=== PATIENT | female | born 1940 | race Caucasian/White ===

== ENCOUNTER 2025-03-10 13:31 | Inpatient (IN) | payer OTHER ==
[2025-03-10 13:35] VITALS: BMI 24.5
[2025-03-10 14:40] LABS: ABSOLUTE IMMATURE GRANULOCYTES 0.03 x10^3/uL (0.0-0.031); BASOPHILS # 0.04 x10^3/uL (0.01-0.08); EOSINOPHIL % 0.4 % (0.7-5.8); EOSINOPHILS # 0.05 x10^3/uL (0.04-0.36); MCHC 32.8 g/dl (32.2-35.5); MEAN CELL VOLUME 92.2 fl (79.4-94.8); MEAN PLT VOLUME 11.9 fl (9.4-12.3); MONOCYTE # 1.16 x10^3/uL (0.24-0.86); MONOCYTE % 8.6 % (4.7-12.5); RDW 13.2 % (12.5-17.0)
[2025-03-10 15:12] LABS: GLUCOSE,RANDOM 286.0 mg/dL (74-106); TOT PROT 6.4 g/dl (6.4-8.2)
[2025-03-10 15:14] LABS: CO2 23.0 mmol/L (21-32)
[2025-03-10 15:15] LABS: ALK PHOS 63.0 U/L (40-150)
[2025-03-10] MEDS ORDERED: ACETAMINOPHEN INJECTION 100 ML ONE (15:17)
[2025-03-10 15:18] LABS: CREATININE 0.9 mg/dL (0.55-1.3); SGOT/AST 20.0 U/L (5-34); SGPT/ALT 15.0 U/L (0-55)
[2025-03-10] MEDS: ACETAMINOPHEN 1000 MG/100 ML BAG IVPB ONE (15:22)
[2025-03-10] MEDS: SODIUM CHLORIDE 0.9% 500 ML INFUS.BAG IV ONE (15:31)
[2025-03-10 17:11] LABS: URINE APPEARANCE CLOUDY; URINE COLOR YELLOW
[2025-03-10 17:12] LABS: URINE BILIRUBIN NEGATIVE (NEGATIVE); URINE GLUCOSE (UA) 3+ (NEGATIVE); URINE KETONE NEGATIVE (NEGATIVE); URINE NITRITE NEGATIVE (NEGATIVE); URINE PROTEIN NEGATIVE (NEGATIVE); URINE UROBILINOGEN 0.2 mg/dL (0.2-1.0)
[2025-03-10 17:13] LABS: URINE LEUK ESTERASE 3+ (NEGATIVE)
[2025-03-10] MEDS ORDERED: CEFTRIAXONE 1 GM/50 ML BAG ONE (17:54)
[2025-03-10] MEDS: CEFTRIAXONE 1 GM in DEXTROSE 5%-WATER - 50 ML IVPB SCH (17:58)
[2025-03-10] MEDS: ROSUVASTATIN CA 20 MG TABLET PO SCH (21:51)
[2025-03-10] MEDS: APIXABAN 2.5 MG TABLET PO SCH (21:51)
[2025-03-11] MEDS: CITALOPRAM HYDROBROMIDE 10 MG TABLET PO SCH (09:54)
[2025-03-11] MEDS: ACETAMINOPHEN 1000 MG/100 ML BAG IVPB PRN (18:54)
[2025-03-11] MEDS: INSULIN ASPART SLIDING SCALE (NOVOLOG) 1 VIAL SQ SCH (22:01)
[2025-03-11] MEDS: INSULIN GLARGINE (LANTUS) 100 UNITS/ML UNITS SQ SCH (22:02)
[2025-03-12 08:21] LABS: ABSOLUTE IMMATURE GRANULOCYTES 0.03 x10^3/uL (0.0-0.031); BASOPHILS # 0.04 x10^3/uL (0.01-0.08); EOSINOPHIL % 2.6 % (0.7-5.8); EOSINOPHILS # 0.19 x10^3/uL (0.04-0.36); MCHC 31.9 g/dl (32.2-35.5); MEAN CELL VOLUME 94.0 fl (79.4-94.8); MEAN PLT VOLUME 11.7 fl (9.4-12.3); MONOCYTE # 0.59 x10^3/uL (0.24-0.86); MONOCYTE % 8.1 % (4.7-12.5); RDW 13.2 % (12.5-17.0)
[2025-03-12 08:54] LABS: GLUCOSE,RANDOM 205.0 mg/dL (74-106)
[2025-03-12 08:56] LABS: CO2 24.0 mmol/L (21-32)
[2025-03-12 08:57] LABS: ALK PHOS 75.0 U/L (40-150)
[2025-03-12 09:00] LABS: CREATININE 0.87 mg/dL (0.55-1.3); SGOT/AST 19.0 U/L (5-34); SGPT/ALT 11.0 U/L (0-55)
[2025-03-12] MEDS ORDERED: PATIENT'S OWN MEDICATION (NON-FORMULARY) (Mirabegron [Myrbetriq] 25 MG Tab.Er.24h) PO SCH (10:00)
[2025-03-12] MEDS ORDERED: LIDOCAINE 5% TOPICAL PATCH TP SCH (10:21)
[2025-03-12] MEDS: LIDOCAINE 4% PATCH TP SCH (10:27)
[2025-03-12] MEDS: PANTOPRAZOLE 40 MG TABLET PO SCH (10:41)
[2025-03-12 11:52] LABS: TOT PROT 7.1 g/dl (6.4-8.2)
[2025-03-12] MEDS: LIDOCAINE 5% TOPICAL PATCH TP SCH (12:03)
[2025-03-12] MEDS: LIDOCAINE PATCH REMOVAL MC SCH (22:03)
[2025-03-14 15:20] VITALS: BP 133/54; PULSE 81; RESP 18; TEMP 98.9
== END 2025-03-14 17:06 | disposition home or self-care (01) | DRG 312 ==
LOC: JER 13:31 → JERBED 16:05 → J6W TELE 18:29 → OBSVTOIN 03-11 10:59
PROVIDERS: ADMIT Internal Medicine; ATTEND Internal Medicine
PROC: 4A10X4Z Monitoring of Central Nervous Electrical Activity, External Approach (ICD-10-PCS; principal; 2025-03-12)
DX: R55 Syncope and collapse (principal); N39.0 Urinary tract infection, site not specified; I24.89 Other forms of acute ischemic heart disease; I25.10 Atherosclerotic heart disease of native coronary artery without angina pectoris; I12.9 Hypertensive chronic kidney disease with stage 1 through stage 4 chronic kidney disease, or unspecified chronic kidney disease; E11.22 Type 2 diabetes mellitus with diabetic chronic kidney disease; N18.9 Chronic kidney disease, unspecified; E86.0 Dehydration
CPT/HCPCS: 36415; 70450-TC; 70551-TC; 71045-TC-FY; 72100-TC-FY; 72125-TC; 73521-TC-FY; 76775-TC; 80053; 81003; 82436; 82550; 82962; 83735; 83930; 84133; 84300; 84443; 84484; 85025; 87086; 93005; 93010; 95816; 97116-GP; 97162-GP; 99285-25; G0378